=== PATIENT | female | born 1980 | race African-American/Black ===

== ENCOUNTER → 2018-06-16 | Outpatient (CLI) | payer OTHER ==
--- NOTE | 2018-06-16 12:23 | RAD ---
Right wrist, 3 views, 06/16/2018: HISTORY: Wrist pain, injury No fracture or dislocation is identified. The soft tissues are unremarkable. IMPRESSION: No significant right wrist abnormality is detected. Electronically signed by: Anand Roger MD (06/16/2018 12:20 PM) [facility]
== END | disposition home or self-care (01) ==
LOC: PMG 09:38
PROVIDERS: ATTEND Physician Assistant
DX: M25.531 Pain in right wrist (principal)
CPT/HCPCS: 73110